=== PATIENT | female | born 1995 | race Caucasian/White ===

== ENCOUNTER 2021-05-15 14:10 | Outpatient (CLI) | payer BC, SELFPAY ==
[2021-05-15 14:37] LABS: Hematocrit 35.2 % (37.0-47.0); Hemoglobin 11.8 g/dL (12.0-15.0); Mean Corpuscular HGB Conc 33.5 g/dl (32-36); Mean Corpuscular Hemoglobin 32.2 pg (26-34); Mean Corpuscular Volume 96.2 fl (80-100); Mean Platelet Volume 10.8 fl (7.4-10.4); Platelet Count Result 199 k/mm3 (150-375); Red Blood Count 3.66 M/mm3 (4.2-5.4); Red Cell Distribution Width 12.6 % (11.5-14.5); White Blood Count 18.7 K/mm3 (4.5-10.0)
[2021-05-16 06:26] LABS: Rapid Plasma Reagin Non-Reactive (NonReactive)
== END 2021-05-15 14:11 | disposition home or self-care (01) ==
PROVIDERS: Visit Provider Obstetrics & Gynecology
DX: Z01.818 Encounter for other preprocedural examination (principal)
CPT/HCPCS: 36415; 85027; 86592; 86850; 86900; 86901

== ENCOUNTER 2021-05-16 09:56 | Inpatient (IN) | payer BC, SELFPAY ==
[2021-05-16] VITALS (31 sets, daily range): BP systolic 92–112; BP diastolic 50–70; PULSE 64–115; RESP 12–20; TEMP 36.1–37.3; O2SAT 96–100; BMI 25.9
--- OUTSIDE RECORDS SUMMARY | 2021-05-16 10:05 | XMS_ITS | Encounter Summary ---
:1995 Author Reason for Visit return OB visit Assessment and Plan 1. Routine care Discussion Note: None recorded.Patient educational handouts: No information available. Plan of Care Reminders Provider Appointments Post-Op 05/21/2021 Cris Weaver MD 10 10:30AM Lab None ? ? recorded. Referral None ? ? recorded. Procedures None ? ? recorded. Surgeries None ? ? recorded. Imaging None ? ? recorded. Medications Name Start Date ? ? meclizine 25 mg tablet ? TAKE 1 TABLET BY MOUTH THREE TIMES DAILY NEEDED Notes: otc Medications Administered None recorded. Vitals Height Weight Blood Pressure 5 ft 6 in 160 lbs 110/72 mm[Hg] Results Lab Results None recorded. Allergies Code Code System Name Reaction Severity Onset 7100 RxNorm Clindamycin Hives Moderate to ? Severe ? ? ? Vomiting Moderate to ? Severe Problems Name Status Onset Date Source ? Active 11/26/2020 ? Procedures Date Name Performed by ?
--- OUTSIDE RECORDS SUMMARY | 2021-05-16 10:05 | XMS_ITS | Encounter Summary ---
[...] Weight Blood Pressure 5 ft 6 in 158 lbs 108/66 mm[Hg] Results Lab Results None recorded. Allergies Code Code System Name Reaction Severity Onset 3044 RxNorm Clindamycin Hives Moderate to ? Severe ? ? ? Vomiting Moderate to ? Severe Problems Name Status Onset Date Source ? Active 11/26/2020 ? Procedures Date Name Performed by ?
--- OUTSIDE RECORDS SUMMARY | 2021-05-16 10:05 | XMS_ITS | Encounter Summary ---
:1995 Author Reason for Visit return OB visit Assessment and Plan 1. Routine care ? streptococcus group B, cul ture, vaginal or rectal ? section (SURG) Discussion Note: None recorded.Patient educational handouts: No information available. Plan of Care Reminders Provider Appointments Post-Op 10 Mikhail Weaver, 05/21/2021 10:30AM Lab Streptococcus Gat [facility] Group B, Culture, Vaginal 04/29/2021 [facility] (Lab) or Rectal Referral None recorded. ? ? Procedures None recorded. ? ? Surgeries Section [place] (SURG) 05/16/2021 Hospital ([facility]) Imaging None recorded. ? ? Medications Name Start Date ? ? meclizine 25 mg tablet ? TAKE 1 TABLET BY MOUTH THREE TIMES DAILY NEEDED Notes: otc Medications Administered None recorded. Vitals Height Weight Blood Pressure 5 ft 6 in 155 lbs 110/70 mm[Hg] Results Lab Results Date Name Specimen Result Interpretation Description Value Range Status Address ? 04/29/2021 Streptococcus ? Strep Gp negative negative Final [facility]: Group B, B [id number] [id number] Culture, Vag
--- OUTSIDE RECORDS SUMMARY | 2021-05-16 10:05 | XMS_ITS ---
:1995 Author Care Team Providers Name Role Phone Baldev Mark Primary Care Provider Unavailable Allergies Code Code System Name Reaction Severity Status Onset 2582 RxNorm Clindamycin Hives Moderate to Active ? Severe ? ? ? Vomiting Moderate to Active ? Severe Medications Name Status Start Date Stop Date ? ? amoxicillin 500 mg capsule Completed ? 04/15 TAKE 1 CAPSULE BY MOUTH THREE TIMES DAILY amoxicillin 500 mg tablet Completed ? 2020 TAKE 1 TABLET BY MOUTH THREE TIMES DAILY meclizine 25 mg tablet Active ? Not avail able TAKE 1 TABLET BY MOUTH THREE TIMES DAILY NEEDED metronidazole 500 mg tablet Completed ? 040 11/2020 TAKE 1 TABLET BY MOUTH THREE TIMES DAILY FOR 7 DAYS progesterone micronized 200 mg capsule Completed ? 11/26/2020 Notes: otc Problems Name Status Onset Date Source ? Active 11/26/2020 ? Procedures Date Name Performed by ? ? Procedure on Oral Cavity Information not available Notes: 2 years 10/01/2020 US, Obstetric, 1St Trimester [place] [facility] (Imaging) [address] [place], [place] [address] (Work Place) 12/23/2020 US, Obstetric, Maternal [place] [facility] (Imaging) Evaluation + Fe
--- OUTSIDE RECORDS SUMMARY | 2021-05-16 10:06 | XMS_ITS | Encounter Summary ---
[...] Weight Blood Pressure 5 ft 6 in 152 lbs 108/62 mm[Hg] Results Lab Results None recorded. Allergies Code Code System Name Reaction Severity Onset 7452 RxNorm Clindamycin Hives Moderate to ? Severe ? ? ? Vomiting Moderate to ? Severe Problems Name Status Onset Date Source ? Active 11/26/2020 ? Procedures Date Name Performed by ?
--- OUTSIDE RECORDS SUMMARY | 2021-05-16 10:06 | XMS_ITS | Encounter Summary ---
:1995 Author Reason for Visit return OB visit Assessment and Plan 1. Routine care 2. Dizzy spells ? meclizine 25 mg tablet Discussion Note: None recorded.Patient educational handouts: No [...] Weight Blood Pressure 5 ft 6 in 142 lbs 104/60 mm[Hg] Results Lab Results None recorded. Allergies Code Code System Name Reaction Severity Onset 6625 RxNorm Clindamycin Hives Moderate to ? Severe ? ? ? Vomiting Moderate to ? Severe Problems Name Status Onset Date Source ? Active 11/26/2020 ? Procedures
[2021-05-16] MEDS: LACTATED RINGERS 1,000 ML 125 ML IV CONT ×2 (10:58→11:32)
--- NOTE | 2021-05-16 11:14 | LDADM ---
This patient, Ghislaine Cisneros, was admitted to Labor/Delivery/Recovery 119 on 05/16/21 at 09:56. Plans for labor, pain management and were discussed with patient. Patient/family oriented to hospital policies and general routines including ID bracelet, bed and alarms, visiting hours, pain management, procedures, bathroom and other care routines, personal items, smoking policy, room service/diet and guest tray routines, security routines, and visiting hours. Patient/Family are encouraged to report perceived risks to care and to ask questions if they do not understand what they are told or what they should do. See OBIX for further documentation.
--- NOTE | 2021-05-16 11:32 | PM.IMHP ---
H&P: HPI History of Present Illness Date/Time: 05/16/21 11:32 26-year-old 2 para 1001 presents for breech delivery. We discussed vaginal and she is not interested and we will proceed with delivery. Chief Complaint: Review of Systems Review of Systems: All systems reviewed & are unremarkable except as noted in HPI and below PMFSH Social History Social History Smoking status: Current every day smoker Tobacco type: cigarettes Second hand tobacco smoke exposure: Yes Substance use: current Spiritual care concerns: No Meds Home Medications and Allergies Allergies Allergy/AdvReac Type Severity Reaction Status Date / Time No Known Allergies Allergy Verified 07/24/16 23:24 Vital Signs Vital Signs - 24 hr 05/16/21 10:47 Pulse Rate 91 Blood Pressure 112/70 Exam Const: General: cooperative and healthy appearing Resp: Effort & Inspection: normal respiratory effort Auscultation: clear to auscultation bilaterally Cardio: Rate: regular rate Rhythm: regular rhythm : External Female Exam: normal external appearance Bimanual exam- vagina & uterus: enlarged ( Fundal height 38cm breech presentation heart tones 140) Assessment and Plan Assessment and plan (1) 39 weeks gestation of : Code(s): Z3A.39 - 39 weeks gestation of Status: Acute (2) Breech presentation: Code(s): O32.1XX0 - Maternal care for breech presentation, not applicable or unspecified Status: Acute Additional Plan proceed with primary delivery
--- NOTE | 2021-05-16 11:34 | WPDHPUPDATE1 ---
History and Physical Update Update Date/Time: 05/16/21 11:34 History and Physical has been reviewed, including an updated exam of the patient. There are NO changes in the patient's condition. Risks, benefits, and alternatives have been discussed and questions answered. Patient agrees to proceed with procedure.
--- NOTE | 2021-05-16 11:57 | WPDANESEFPP ---
Anes - Eval Final PreProcedure Day of Procedure 05/16/21 11:57 Patient weight: overweight Heart: regular rate and rhythm Lungs: clear to auscultation and normal air movement Airway: Mallampati scale class II and special considerations poor dentition Neurological: alert and oriented Last oral intake: >/= 8 hours ASA classification: II Emergent: no Anesthetic plan: proceed Anesthesia type and monitoring: regional Results Review: All pre-operative results and documents have been reviewed as part of the pre-operative evaluation. Informed Consent: The patient's anesthetic plan and its attendant risks and benefits were discussed with the patient/family/POA. Questions were solicited and answers provided to the satisfaction of the patient/family/POA.
--- NOTE | 2021-05-16 11:58 | WPDANESEPP ---
Anes - Eval Pre Procedure Procedure: Operation Date: 05/16/21 12:00 Proposed Procedures p Primary Section - Baldev Mark MD Date/Time: 05/16/21 11:58 Pre Op Diagnosis: C Section Patient Data Age: 26 Gender: F Height: 1.68 m Weight: 73 kg Last Vital Signs Temp 37.3 C 05/16/21 10:47 Pulse 82 05/16/21 10:47 Resp 16 05/16/21 10:47 BP 112/70 05/16/21 10:47 Allergies Allergy/AdvReac Type Severity Reaction Status Date / Time No Known Allergies Allergy Verified 07/24/16 23:24 Patient hx anesthesia problems: none Family hx anesthesia problems: none Results Review: All pre-operative results and documents have been reviewed as part of the pre-operative evaluation. PMFSH Past Medical History Medical History Smoker Social History Social History Smoking status: Current every day smoker Tobacco type: cigarettes Second hand tobacco smoke exposure: Yes Substance use: current Spiritual care concerns: No Exam Day of Procedure 05/16/21 11:58
--- NOTE | 2021-05-16 12:17 | PM.OBPRVD ---
OB - Delivery Note Procedure Procedure: Procedures Operation Date: 05/16/21 12:00 <No data on this case meets the specified criteria> Intrapartal events: Abnormal Presentation (Breech presentation) Route of delivery: Specimen: No Quantitative Blood Loss (ml): 505 Anesthesia type: Spinal Disposition: floor Narrative: Patient prepped and draped usual manner for this procedure. Pfannenstiel incision was carried made and carried down to the fascia which was extended bilaterally length of the skin incision. Superiorly and inferiorly dissected away from the rectus muscles and peritoneum was readily entered with the bladder flap developed. Uterus scored low transverse manner with clear fluid noted breech was delivered without difficulty cord was clamped and cut and baby was passed off the operative field placenta removed manually and the placental and membranes and clots removed from the intrauterine cavity. Uterus was closed using 0 Monocryl running interlocking manner with good approximation and hemostasis noted. Uterus returned to the abdomen gutters were cleared of serosanguineous fluid and clots and all subfascial tissue including the uterus was noted be hemostatic. Fascia was approximated using 0 Vicryl from left angle midline in the right middle midline with good approximation hemostasis noted. Subcutaneous tissue approximated 0 plain suture and the skin was then approximated using ketty. Patient was then sent to recovery room in stable condition. [place] Baby Weeks of gestation at delivery: 39 gender: Male Weight (pounds): 0 Weight (ounces): 0 score one minute: 0 score five minutes: 0 Narrative: The baby was taken to the nursery and therefore no weight or Apgars are noted in this note. They will be added later.
[2021-05-16] MEDS: KETOROLAC 30 MG/ML VIAL (*BKC) IV PUSH (12:53)
[2021-05-16] MEDS: OXYTOCIN 30 UNITS/NS 500 ML 30 UNITS/500 ML BAG 125 UNITS IV CONT (13:04)
[2021-05-16 13:23] LABS: Amphetamine Screen Urine Negative (Negative); Barbiturate Screen Urine Negative (Negative); Benzodiazepines Screen Urine Negative (Negative); Cannabinoid Screen Urine Positive (Negative); Cocaine Screen Urine Negative (Negative); Methadone Screen Urine Negative (Negative); Opiate Screen Urine Negative (Negative); Phencyclidine Screen Urine Negative (Negative)
--- NOTE | 2021-05-16 16:38 | PC.NURSE ---
1456-Patient transferred to post room #283 via stretcher. Support person present. Oriented to unit, room, information board, rooming in, admission packet and security measures. Patient verbalizes understanding.
[2021-05-16] MEDS: MECLIZINE HCL 25 MG TABLET PO (18:00)
[2021-05-16] MEDS: IBUPROFEN 600 MG TABLET PO (18:00)
[2021-05-16] MEDS: DOCUSATE SODIUM 100 MG CAPSULE PO (18:00)
[2021-05-16] MEDS: HYDROcodone/acetaminophen (*CRX) 5-325 MG TABLET 1 TAB PO (18:01)
[2021-05-17] MEDS: HYDROcodone/acetaminophen (*CRX) 5-325 MG TABLET 1 TAB PO ×2 (00:24→19:10)
[2021-05-17] MEDS: IBUPROFEN 600 MG TABLET PO ×4 (00:24→19:10)
[2021-05-17 00:25] VITALS: BP 101/67; PULSE 82; RESP 16; TEMP 36.7; O2SAT 99
[2021-05-17 05:00] VITALS: BP 115/68; PULSE 86; RESP 16; TEMP 36.8; O2SAT 96
[2021-05-17 05:45] LABS: Basophils Absolute Auto 0.1 K/mm3 (0.0-0.1); Basophils Percent Auto 0.5 % (0.2-1.2); Eosinophils Absolute Auto 0.4 K/mm3 (0-0.3); Eosinophils Percent Auto 1.9 % (0-4.4); Hematocrit 30.6 % (37.0-47.0); Hemoglobin 10.4 g/dL (12.0-15.0); Immature Granulocyte Absolute 0.12 K/mm3 (0.00-0.031); Immature Granulocyte Percent A 0.7 % (0-0.5); Lymphocytes Absolute Auto 2.77 K/mm3 (0.9-3.2); Lymphocytes Percent Auto 15.4 % (18.3-44.2); Mean Corpuscular Hemoglobin 32.5 pg (26-34); Mean Corpuscular Volume 95.6 fl (80-100); Mean Platelet Volume 11.4 fl (7.4-10.4); Monocytes Absolute Auto 1.9 K/mm3 (0.1-0.6); Monocytes Percent Auto 10.3 % (2.6-8.5); Neutrophils Absolute Auto 12.8 K/mm3 (1.3-6.7); Neutrophils Percent Auto 71.2 % (45.5-73.1); Platelet Count Result 174 k/mm3 (150-375); Red Cell Distribution Width 12.7 % (11.5-14.5)
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
[2021-05-17 07:45] VITALS: BP 108/69; PULSE 83; RESP 16; TEMP 36.3; O2SAT 100
--- NOTE | 2021-05-17 07:49 | P.DS_ITS ---
DS: Admitting Diagnosis Discharge Date 05/18/2021 Admitting Diagnosis DS: Discharge Diagnosis Discharge Diagnosis (1) 39 weeks gestation of : Code(s): Z3A.39 - 39 weeks gestation of Status: Acute OB - DS: Summary OB Procedures : None OB Procedures Intrapartum: OB Procedures: : None Peripartum Data Procedures: Procedures Operation Date: 05/16/21 12:00 Actual Procedure Side Surgeon p Primary Section Baldev Mark MD Time Spent with Patient Time attestation: Total time spent providing and/or coordinating discharge services: DS: Data Data Completed and Pending Labs on day of discharge: Labs from last 24 hours 05/17/21 05/16/21 05:05 12:56 WBC 18.0 H RBC 3.20 L Hgb 10.4 L Hct 30.6 L MCV 95.6 MCH 32.5 MCHC 34.0 RDW 12.7 Plt Count 174 MPV 11.4 H Immature Gran % (Auto) 0.7 H Neut % (Auto) 71.2 Lymph % (Auto) 15.4 L Reeves % (Auto) 10.3 H Eos % (Auto) 1.9 Baso % (Auto) 0.5 Lymph # (Auto) 2.77 Reeves # (Auto) 1.9 H Eos # (Auto) 0.4 H Baso # (Auto) 0.1 Abs Immat Gran (auto) 0.12 H Absolute Neuts (auto) 12.8 H Absolute Nucleated RBC 0.0 Nucleated RBC % 0.0 Urine Opiates Screen Negative Urine Methadone Screen Negative Ur Barbiturates Screen Negative Ur Phencyclidine Scrn Negative Ur Amphetamine Screen Negative U Benzodiazepines Scrn Negative Urine Cocaine Screen Negative U Cannabinoids Screen Positive A Discharge Plan Discharge Discharging Clinician: Baldev Mark Anticipated Discharge Date/Time: 05/18/21 07:50 Patient Disposition: Home, Self-Care Activity: as tolerated Diet: as tolerated Wound Care Instructions: incision open to air Discharge Instructions: office next week for staple removal Patient Instructions: Antibiotic Form Stand Alone Forms: General Discharge Information Follow-up/Referrals: Baldev Mark MD [Physician] - 3 Weeks Discharge Medications: New hydrocodone-acetaminophen 5-325 mg Tablet 1 tablet PO Q3H PRN (Reason: Moderate Pain (4-6)) Qty: 30 RF: 0 ibuprofen 600 mg Tablet 600 mg PO Q6H PRN (Reason: Cramping) Qty: 30 RF: 0 Continued meclizine 25 mg tablet 25 mg PO TID RF: 0 Gummies 1 mg PO BID RF: 0 Date of admission: 05/16/21 09:56 Primary Care Provider: PHYSICIAN,ASSEMBLY ADJUSTER Admitting Provider: Baldev Mark Attending physician on admission: Baldev Mark Condition: Stable
[2021-05-17] MEDS: DOCUSATE SODIUM 100 MG CAPSULE PO ×2 (08:11→14:37)
[2021-05-17] MEDS: MULTIVIT/MIN/PREN/FOL AC/IRON TABLET 1 TAB PO (08:11)
[2021-05-17] MEDS: MECLIZINE HCL 25 MG TABLET PO ×3 (08:11→22:00)
--- NOTE | 2021-05-17 10:26 | WPDANLDPN2 ---
Anes-Prog Note L&D Date/Time: 05/17/21 10:26 Comfortable throughout: section Neuraxial method: spinal Epidural/Spinal procedure site: clean & non-tender Neuro status: Neuro function grossly intact. Cardiovascular status: normal Respiratory status: normal Airway patency: baseline Mental status: baseline Post-Op hydration status: normal Vital Signs: Last Vital Signs Temp 36.3 C L 05/17/21 07:45 Pulse 83 05/17/21 07:45 Resp 16 05/17/21 07:45 BP 108/69 05/17/21 07:45 Pulse Ox 100 05/17/21 07:45 Pain score (VAS): 210 I/O: Intake & Output 05/16/21 05/17/21 05/17/21 23:59 07:59 15:59 Intake Total 1500 540 Output Total 1700 850 Balance -200 -310 Post-procedural complaints: other (referred shoulder pain) Patient feedback: Patient satisfied with anesthetic care.
--- NOTE | 2021-05-17 10:27 | WPDANLDNPN2 ---
Anes-Prog Note L&D-Neuraxial Date/Time: 05/17/21 10:27 Neuraxial medications: intrathecal PF morphine Opiod-related complaints: none Patient feedback: Patient satisfied with post-operative pain management.
[2021-05-17] MEDS: METOCLOPRAMIDE HCL 10 MG TABLET PO ×2 (11:33→22:00)
[2021-05-17 12:00] VITALS: BP 99/63; PULSE 88; RESP 16; TEMP 36.7; O2SAT 98
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
[2021-05-17 19:07] VITALS: BP 104/74; PULSE 91; RESP 16; TEMP 36.7
[2021-05-18] MEDS: HYDROcodone/acetaminophen (*CRX) 5-325 MG TABLET 1 TAB PO ×2 (03:15→13:53)
[2021-05-18] MEDS: IBUPROFEN 600 MG TABLET PO ×2 (03:15→13:52)
[2021-05-18 07:30] VITALS: BP 101/57; PULSE 82; RESP 16; TEMP 36.2; O2SAT 100
[2021-05-18] MEDS: MULTIVIT/MIN/PREN/FOL AC/IRON TABLET 1 TAB PO (07:38)
[2021-05-18] MEDS: METOCLOPRAMIDE HCL 10 MG TABLET PO ×2 (07:38→13:51)
[2021-05-18] MEDS: DOCUSATE SODIUM 100 MG CAPSULE PO (07:38)
[2021-05-18] MEDS: MECLIZINE HCL 25 MG TABLET PO ×2 (07:38→13:51)
[2021-05-18] MEDS: ACETAMINOPHEN 325 MG TABLET 650 MG PO (07:39)
--- NOTE | 2021-05-18 10:16 | PC.NURSE ---
Patient viewed the discharge video Mother & Baby Care, The First Two Weeks . Patient was given the opportunity and encouraged to ask questions. Patient verbalized understanding of information shared and has been given the mother/baby guide for home reference.
[2021-05-19 09:49] VITALS: BP 102/68; PULSE 92; RESP 20; TEMP 37; O2SAT 100
--- NOTE | 2021-05-27 16:28 | PM.OBDSVD ---
DS: Admitting Diagnosis Discharge Date 05/18/21 Admitting Diagnosis OB - DS: Summary OB Procedures : None OB Procedures Intrapartum: OB Procedures: : None Peripartum Data Procedures: Procedures Operation Date: 05/16/21 12:00 Actual Procedure Side Surgeon p Primary Section Baldev Mark MD Time Spent with Patient Time attestation: Total time spent providing and/or coordinating discharge services: Discharge Plan Discharge Discharging Clinician: Baldev Mark Anticipated Discharge Date/Time: 05/18/21 07:50 Patient Disposition: Home, Self-Care Activity: as tolerated Diet: as tolerated Wound Care Instructions: incision open to air Discharge Instructions: office next week for staple removal Education: Mom and Baby Guide Given to: Mother Follow-Up: Call your delivering provider's office for an appointment to be seen in: 3 weeks Mom and baby should come to the [facility] for the follow-up appointment. Appointment Date/Time: May 19, 2021 at 10:00 am What to expect at your follow-up visit: Physical Assessment Call [phone] if you are unable to keep your appointment time. BREAST CARE: * Wear a snug supportive bra. * For engorgement discomfort: Breast Feeding: * Apply warm moist washcloths * Express milk as needed to relieve engorgement * Wear loose clothing * For sore nipples: * Identify correct latch-on * Apply warm moist washcloths before and after nursing * Air dry nipples after nursing * May apply Lansinoh cream to nipples ABDOMINAL INCISION: (if applicable) * Allow incision to air dry * Do NOT use lotions for powders on your incision * When showering, allow soap and water to run over the incision, but do not wash incision EPISIOTOMY/PERINEAL CARE: * Until bleeding stops, use your yvonne bottle after urinating * Change your pad frequently throughout the day * No tub baths until seen by your physician - You may shower ACTIVITY: * Rest as much as possible. * Do not exercise or lift anything heavier than your baby (such as laundry or other children.) * Avoid stairs or driving as much as possible. * Do not put anything into the vagina. No douching, tampons, or sexual activity until seen by physician. NOTIFY PHYSICIAN IF YOU HAVE ANY QUESTIONS OR IF ANY OF THE FOLLOWING SYMPTOMS OCCUR: * If your incision becomes red, swollen, or more painful than what you have experienced in the hospital. * If your vaginal bleeding becomes foul smelling. * If your vaginal bleeding becomes more heavy than a period or if your bleeding changes from pink to bright red. However, you may pass an occasional walnut-sized clot once or twice for the first week . * If you experience a sharp, shooting pain in you calves. * If you discover a hard, reddened area on your breast or if you experience flu-like symptoms. DIET: * Eat regular, well-balanced meals. * Drink plenty of fluids daily. If , drink to thirst. Stand Alone Forms: General Discharge Information Follow-up/Referrals: Baldev Mark MD [Physician] - 3 Weeks Discharge Medications: New hydrocodone-acetaminophen 5-325 mg Tablet 1 tablet PO Q3H PRN (Reason: Moderate Pain (4-6)) Qty: 30 RF: 0 ibuprofen 600 mg Tablet 600 mg PO Q6H PRN (Reason: Cramping) Qty: 30 RF: 0 Continued meclizine 25 mg tablet 25 mg PO TID RF: 0 Gummies 1 mg PO BID RF: 0 Date of admission: 05/16/21 09:56 Primary Care Provider: PHYSICIAN,ENERGY CONSERVATION ENGINEER Admitting Provider: Baldev Mark Attending physician on admission: Baldev Mark Condition: Stable
== END 2021-05-18 14:41 | disposition home or self-care (01) | DRG 540 ==
LOC: ANHLDR 10:02 → ANHOB2 15:18
PROVIDERS: Admitting Provider Obstetrics & Gynecology; Visit Provider Obstetrics & Gynecology
PROC: 10D00Z1 Extraction of Products of Conception, Low, Open Approach (ICD-10-PCS; CPT 59514; principal; 2021-05-16 12:00)
DX: O32.1XX0 Maternal care for breech presentation, not applicable or unspecified (principal); O99.334 Smoking (tobacco) complicating childbirth; F17.210 Nicotine dependence, cigarettes, uncomplicated; Z3A.39 39 weeks gestation of pregnancy; Z37.0 Single live birth
CPT/HCPCS: 36415; 80307; 85025; A9270; J0131; J1885; J2274; J2405; J2590; J2704; J7120

== ENCOUNTER 2025-02-05 17:23 | Emergency (ER) | payer OTHER, SELFPAY ==
--- NOTE | 2025-02-05 17:29 | ED.EAR ---
HPI - Ear Problem General Chief complaint: Ear Stated complaint: Ears Irritation Time Seen by Provider: 02/05/25 17:32 Source: patient, RN notes reviewed and old records reviewed Mode of arrival: ambulatory Limitations: no limitations History of Present Illness HPI Narrative: 30-year-old female presents to the [facility] with right ear pain. Has been using peroxide and Q-tips. Denies fevers. Denies any other symptoms Related Data Home Medications ?Medication ?Instructions ?Recorded ?Confirmed ?Last Taken ?Type No Home Medications 02/05/25 02/05/25 Unknown History Allergies Allergy/AdvReac Type Severity Reaction Status Date / Time clindamycin Allergy Rash Verified 02/05/25 17:37 Review of Systems Review of Systems: All systems reviewed & are unremarkable except as noted in HPI and below Constitutional: Constitutional: Reports no additional constitutional complaints ENT: Reports as per HPI and Reports otalgia Cardiovascular: Cardiovascular: Reports no additional cardiovascular complaints, Denies chest pain and Denies dyspnea Respiratory: Respiratory: Reports no additional respiratory complaints, Denies chest congestion, Denies cough and Denies dyspnea Musculoskeletal: Musculoskeletal: Reports no additional musculoskeletal complaints Integumentary/Breasts: Skin/Breast: Reports system reviewed and no additional complaints, except as docu PMFSH Past Medical History Medical History Smoker Social History Social History Smoking status: Current every day smoker Tobacco type: cigarettes Second hand tobacco smoke exposure: Yes Substance use: current Spiritual care concerns: No Comments At the time of my signature, I reviewed and agree with the nursing past medical, surgical, social, and family history. There is no relevant family history pertinent to the patient complaint. Exam Const: General: cooperative, no acute distress, well developed, alert, uncomfortable and well nourished Nutritional Appearance: well nourished Orientation/consciousness: patient oriented x3 Limitations: no limitations HENMT: Head: normal to inspection Ears: hearing grossly normal bilaterally, external ears normal, TM's normal bilaterally, mastoids normal, no periauricular adenopathy and Abnormal EAC present erythema on the right, EAC tenderness on the right and other (Abrasion noted between 5 and 10 o'clock right ear mid canal); no edema Mouth: Yes moist mucous membranes Throat: posterior oropharynx normal, uvula midline and no uvular edema Eyes: General: appearance normal, both eyes and all related structures Alignment and Position: alignment normal Neck: Neck: normal visual inspection, full ROM, no lymphadenopathy and no meningeal signs Chest: Chest palpation & inspection: normal inspection of the chest Resp: Effort & Inspection: normal respiratory effort and able to speak in complete sentences Auscultation: clear to auscultation bilaterally, no crackles, no rales, no rhonchi and no wheezes Cardio: Rate: regular rate Skin: General skin exam: normal color and no rashes or lesions noted Neuro: General: patient oriented x3, gait normal, moves all extremities and no meningeal signs Cognition (Neuro): normal cognition Speech: normal speech Gait exam (Neuro): Normal gait present Extrem: General: normal to inspection, full ROM, capillary refill normal and normal gait Psych: Appearance: grossly normal and well kempt Mental Status: mental status grossly normal Speech and movement: Normal speech and movement present and Clear speech present Affect: normal affect Attitude: cooperative Course Course Level of Care: Express Care Visit Vital Signs Vital signs: Vital Signs Temperature 99.6 F 02/05/25 17:33 Pulse Rate 91 02/05/25 17:33 Respiratory Rate 18 02/05/25 17:33 Blood Pressure 119/65 02/05/25 17:33 Pulse Oximetry 100 02/05/25 17:33 Oxygen Delivery Room Air 02/05/25 17:33 Temperature 99.6 F 02/05/25 17:33 Pulse Rate 91 02/05/25 17:33 Respiratory Rate 18 02/05/25 17:33 Blood Pressure 119/65 02/05/25 17:33 Pulse Oximetry 100 02/05/25 17:33 Oxygen Delivery Room Air 02/05/25 17:33 Reviewed Medical Decision Making MDM Narrative Medical decision making narrative: Patient sitting comfortably in exam room. Nontoxic, vitals stable. Patient in no acute distress Patient presents for right ear pain. TMs are normal on exam, erythema, abrasion noted to the ear canal Patient appropriate for outpatient treatment with close follow-up Discharge instructions reviewed with patient, as well as provided in writing per nursing staff. The instructions also include specific and strict return/GO TO THE ER as well as f/u information. All questions have been answered, and the patient deny any further questions with discharge and discharge plan. Some parts of this dictation were generated by voice recognition software and may contain typographical and/or grammatical inaccuracies. Differential Diagnosis Differential Diagnosis: Otitis media, serous otitis, otitis externa, Medical Records Medical records reviewed: Yes I reviewed the external patient's medical records. Vital Signs Vital Signs: Vital Signs Temperature 99.6 F 02/05/25 17:33 Pulse Rate 91 02/05/25 17:33 Respiratory Rate 18 02/05/25 17:33 Blood Pressure 119/65 02/05/25 17:33 Pulse Oximetry 100 02/05/25 17:33 Oxygen Delivery Room Air 02/05/25 17:33 Temperature 99.6 F 02/05/25 17:33 Pulse Rate 91 02/05/25 17:33 Respiratory Rate 18 02/05/25 17:33 Blood Pressure 119/65 02/05/25 17:33 Pulse Oximetry 100 02/05/25 17:33 Oxygen Delivery Room Air 02/05/25 17:33 Reviewed Lab Data Lab results reviewed: Yes I reviewed the patient's lab results. Labs: Reviewed Critical Care Time Critical Care Time Critical Care Time: No Discharge Plan Discharge Clinical Impression: Abrasion of ear canal Qualifiers: Encounter type: initial encounter Laterality: right Qualified Code(s): S00.411A - Abrasion of right ear, initial encounter Patient Disposition: Home Condition: Stable Instructions: Antibiotic Form, Earache (ED) Additional Instructions: Do not put anything in your ears Use ear drops twice a day for 7 days Follow-up with primary care provider For new or worsening symptoms go directly to the ER Patient Language: Icelandic Prescriptions: New ofloxacin 0.3 % drops 5 drp RIGHT EAR BID 7 Days Qty: 5 0RF No Action No Home Medications Follow-up/Referrals: PHYSICIAN,TECHNICAL SERVICES LIBRARIAN [Primary Care Provider] - Dao Gonzalez MD [Physician] - 2 Weeks (express care follow up ) Time of Disposition: 17:38
[2025-02-05 17:33] VITALS: BP 119/65; PULSE 91; RESP 18; TEMP 37.6; O2SAT 100
== END 2025-02-05 17:43 | disposition home or self-care (01) ==
PROVIDERS: Emergency Provider Nurse Practitioner
DX: S00.411A Abrasion of right ear, initial encounter (principal); X58.XXXA Exposure to other specified factors, initial encounter; F17.210 Nicotine dependence, cigarettes, uncomplicated
CPT/HCPCS: 99213; G0463